=== PATIENT | female | born 1935 | race Caucasian/White ===

== ENCOUNTER 2017-10-11 10:56 | Inpatient (IN) | payer OTHER ==
[2017-10-05 11:51] VITALS: BMI 38.5
--- NOTE | 2017-10-05 12:25 | HP ---
HISTORY OF PRESENT ILLNESS This is an 82 year old female with PMHx of NIDDM, hypothyroidism, who is scheduled for C4/C5 corpectomy, C3-C6 anterior cervical discectomy. The patient reports about two months ago she started developing b/l hand pins and needles and b/l arm numbness. She reports it has progressively worsened over the past two months. The patient denies any chest pain, palpitations, nausea, vomiting, diarrhea, abdominal pain, headache, dizziness, syncope. The patient does reports having lower extremity swelling that she has had "forever", but has never told her primary about. Instructed the patient to follow-up with her pcp for an evaluation and medical clearance prior to surgery PCP: Dr. Elan Fleming ([phone]) Recent travel: denies Family History: denies Social History: denies Smoking: denies Alcohol: denies Drugs: denies REVIEW OF SYSTEMS CONSTITUTIONAL: Absent: fever, chills, diaphoresis, generalized weakness, malaise, loss of appetite, weight change HEENT: Absent: rhinorrhea, nasal congestion, throat pain, throat swelling, difficulty swallowing, mouth swelling, ear pain, eye pain, visual changes CARDIOVASCULAR: Absent: chest pain, syncope, palpitations, irregular heart rate, lightheadedness , peripheral edema RESPIRATORY: Absent: cough, shortness of breath, dyspnea with exertion, orthopnea, wheezing, stridor, hemoptysis GASTROINTESTINAL: Absent: abdominal pain, abdominal distension, nausea, vomiting, diarrhea, constipation, melena, hematochezia GENITOURINARY: Absent: dysuria, frequency, urgency, hesitancy, hematuria, flank pain, genital pain MUSCULOSKELETAL: Absent: myalgia, arthralgia, joint swelling, back pain SKIN: Absent: rash, itching, pallor HEMATOLOGIC/IMMUNOLOGIC: Absent: easy bleeding, easy bruising, lymphadenopathy, frequent infections ENDOCRINE: Absent: unexplained weight gain, unexplained weight loss, heat intolerance, cold intolerance NEUROLOGIC: B/l hand parasthesias and arm numbness Absent: headache, dizziness, unsteady gait, seizure, mental status changes, bladder or bowel incontinence PSYCHIATRIC: Absent: anxiety, depression, suicidal or homicidal ideation, hallucinations. PHYSICAL EXAMINATION: GENERAL: Awake, alert, and fully oriented, in no acute distress. HEAD: Normal with no signs of trauma. EYES: Pupils equal, round and reactive to light, extraocular movements intact, sclera anicteric, conjunctiva clear. No lid lag. EARS, NOSE, THROAT: Ears normal, nares patent, oropharynx clear without exudates. Moist mucous membranes. NECK: Normal range of motion, supple without lymphadenopathy, JVD, or masses. LUNGS: Breath sounds equal, clear to auscultation bilaterally. No wheezes, and no crackles. No accessory muscle use. HEART: Regular rate and rhythm, normal S1 and S2 without murmur, rub or gallop. ABDOMEN: Soft, nontender, not distended, normoactive bowel sounds, no guarding, no rebound, no masses. No hepatomegaly or splenomegaly. MUSCULOSKELETAL: Normal range of motion at all joints. No bony deformities or tenderness. No CVA tenderness. UPPER EXTREMITIES: 2+ pulses, warm, well-perfused. No cyanosis. No clubbing. No peripheral edema. LOWER EXTREMITIES: B/l lower extremity 2+ edema. 2+ pulses, warm, well- perfused. No calf tenderness NEUROLOGICAL: Cranial nerves II-XII intact. Normal speech. Normal gait. PSYCHIATRIC: Cooperative. Good eye contact. Appropriate mood and affect. SKIN: Warm, dry, normal turgor, no rashes or lesions noted, normal capillary refill. Assessment: This is an 82 year old female with PMHx of NIDDM, hypothyroidism, who is scheduled for C4/C5 corpectomy, C3-C6 anterior cervical discectomy. Plan: 1) C4/C5 corpectomy, C3-C6 anterior cervical discectomy - Plan scheduled surgery on 10/11/17 - Medical clearance pending from patient's pcp 2) NIDDM - Continue Glipizide/Metformin 3) Hypothyroidism - Continue Synthroid 4) B/l lower extremity swelling - Patient denies ever being evaluated for edema - Instructed the patient to follow-up with pcp prior to surgery for lower extremity edema evaluation
[2017-10-18 10:59] LABS: INR 0.98 (0.82-1.09); PROTHROMBIN TIME (PATIENT) 11.1 SEC (9.7-13.0)
[2017-10-18] MEDS ORDERED: PROMETHAZINE HCL 25 MG/1 ML VIAL IVPB PRN (14:13)
[2017-10-18] MEDS ORDERED: ONDANSETRON 4 MG/2 ML VIAL IVPUSH PRN ×2 (14:13→18:47)
[2017-10-18] MEDS ORDERED: DEXAMETHASONE SOD PHOSPHATE 4 MG/1 ML VIAL IVPUSH ONE (14:13)
[2017-10-18] MEDS ORDERED: HYDROmorphone *PCA* 10MG/50ML DISP.SYRIN PCA SCH (14:15)
[2017-10-18] MEDS ORDERED: LACTATED RINGERS SOLUTION 1,000 ML IV SCH ×2 (14:15→19:00)
[2017-10-18] MEDS ORDERED: HEPARIN NA (PORCINE) 5,000 UNITS/ML 1ML VIAL ONE (14:53)
[2017-10-18] MEDS ORDERED: GELATIN, ABSORBABLE 100 EACH SPONGE TP ONE (15:11)
[2017-10-18] MEDS ORDERED: THROMBIN (BOVINE) 5,000 UNIT VIAL TP ONE ×3 (15:13→17:48)
[2017-10-18] MEDS ORDERED: ceFAZolin SODIUM 1 GM VIAL IVPB ONE ×3 (15:15)
[2017-10-18] MEDS ORDERED: VANCOMYCIN 1,000 MG VIAL (RESTRICTED TO ID ONLY) IVPB ONE (15:30)
[2017-10-18] MEDS ORDERED: TRANEXAMIC ACID 1000 MG/10 ML VIAL ONE ×2 (16:07→17:20)
[2017-10-18] MEDS ORDERED: PROPOFOL 20 ML ONE ×6 (16:43→17:29)
[2017-10-18] MEDS ORDERED: DEXAMETHASONE SOD PHOSPHATE 4 MG/1 ML VIAL ONE (17:47)
--- NOTE | 2017-10-18 18:38 | OP ---
Operative Note - Note: Operative Date: 10/18/17 Pre-Operative Diagnosis: 1. Cervical spinal stenosis. 2. Cervical myeloradiculopathy. 3. Progressive neurological decline Operation: 1. C3-C4, C4-C5, C5-C6 discectomies. 2. C4, C5 corpectomies. 3. C3 , C6 partial corpectomies. 4. C3-C7 anterior cervical decompression and instrumented fusion. 5. Bone allograft Post-Operative Diagnosis: Same as Pre-op Surgeon: Tyshawn Amaral Online Merchandiser: Felipe Amaral Anesthesia: General Estimated Blood Loss (mls): 1,400 Blood Volume Replaced (mls): 560 (Cell Saver) Fluid Volume Replaced (mls): 2,300 (Crystalloid) Operative Report Dictated: Yes
--- NOTE | 2017-10-18 18:39 | PN ---
Progress Note (short form) - Note Progress Note: 82F s/p C3-C4, C4-C5, C5-C6 discectomies; C4, C5 corpectomies; C3, C6 partial corpectomies; C3-C7 anterior cervical decompression and instrumented fusion POD #0. -Admit to ICU x 24 hrs. for airway observation; OK to downgrade to floor 2017 if airway stable. -Maintain head of bed 60 degrees. -Pain medication: per anaesthesia team. -DVT PPx: -Mechanical only: IVIS's, SCD's. -Post-op Ancef x 2 doses. -f/u AM labs. -Incentive spirometry. -PT/OT/Rehab, OOB. -WBAT B/L UE & LE. -d/c Joseph catheter in AM; f/u TOV. -Keep dressing clean & dry. -No heavy lifting, bending or twisting. -Puree diet; advance as tolerated. -B/L UE & LE NV checks. -Care per ICU & primary medical hospitalist teams. -Discharge planning: f/u [facility] [place] office 10/28/2017; call for appointment; . Tyshawn Amaral MD (Orthopaedic Surgery).
[2017-10-18] MEDS ORDERED: traMADol HCL 50 MG TABLET PO PRN (18:47)
[2017-10-18] MEDS ORDERED: diazePAM CARPU-JECT 10 MG/2 ML DISP.SYRIN IVPUSH PRN (18:47)
[2017-10-18] MEDS ORDERED: oxyCODONE HCL 5 MG TABLET PO PRN ×2 (18:47)
[2017-10-18] MEDS ORDERED: ACETAMINOPHEN INJECTION 100 ML IVPB ONE (20:19)
[2017-10-18] MEDS: ACETAMINOPHEN 1000 MG/100 ML VIAL (NON FORMULARY) IVPB SCH (20:20)
[2017-10-18] MEDS: ceFAZolin 2 GRAM PREMIX BAG IVPB SCH (22:35)
[2017-10-19] MEDS: ACETAMINOPHEN 1000 MG/100 ML VIAL (NON FORMULARY) IVPB SCH (03:00)
[2017-10-19] MEDS ORDERED: DEXAMETHASONE SOD PHOSPHATE 10 MG/1 ML VIAL IVPUSH ONE (06:00)
[2017-10-19] MEDS: ceFAZolin 2 GRAM PREMIX BAG IVPB SCH (06:08)
[2017-10-19 06:17] LABS: HEMATOCRIT 33.3 % (32.4-45.2); HEMOGLOBIN 11.8 GM/dL (10.7-15.3); MCH 31.2 pg (25.7-33.7); MCHC 35.4 g/dl (32.0-36.0); MEAN CELL VOLUME 88.1 fl (80-96); MEAN PLT VOLUME 7.9 fl (7.5-11.1); PLATELET COUNT 163 K/MM3 (134-434); RBC 3.78 M/mm3 (3.60-5.2); RDW 13.3 % (11.6-15.6); WHITE BLOOD COUNT 9.2 K/mm3 (4.0-10.0)
[2017-10-19 06:40] LABS: ANION GAP 9 (8-16); BLOOD UREA NITROGEN 13 mg/dL (7-18); CALCIUM 7.6 mg/dL (8.5-10.1); CHLORIDE 110 mmol/L (98-107); CO2 21 mmol/L (21-32); GLUCOSE,RANDOM 221 mg/dL (74-106); POTASSIUM 4.2 mmol/L (3.5-5.1); SODIUM 140 mmol/L (136-145)
[2017-10-19 06:43] LABS: CREATININE 0.7 mg/dL (0.55-1.02)
[2017-10-19] MEDS ORDERED: LEVOTHYROXINE NA 100 MCG TABLET (FP) PO SCH (07:00)
--- NOTE | 2017-10-19 09:42 | PN ---
Progress Note, Physician Chief Complaint: Pt. sitting comfortably in chair. Pain controlled, no GA complaints. - Current Medication List Current Medications: Active Medications Acetaminophen (Ofirmev Injection -) 1,000 mg IVPB Q8H [facility] Stop: 10/19/17 11:01 Last Admin: 10/19/17 03:00 Dose: Not Given Diazepam (Valium Injection -) 5 mg IVPUSH Q6H PRN PRN Reason: MUSCLE SPASMS Lactated Ringer's (Lactated Ringers Solution) 1,000 mls @ 100 mls/hr IV ASDIR [facility] Last Admin: 10/18/17 21:30 Dose: 0 mls Insulin Aspart (Novolog Vial Sliding Scale -) 1 vial SQ Q6HPO [facility]; Protocol Levothyroxine Sodium (Synthroid -) 100 mcg PO 0700 [facility] Last Admin: 10/19/17 06:37 Dose: 100 mcg Ondansetron HCl (Zofran Injection) 4 mg IVPUSH Q6H PRN PRN Reason: NAUSEA AND/OR VOMITING Oxycodone HCl (Roxicodone -) 5 mg PO Q4H PRN PRN Reason: PAIN LEVEL 4-6 Oxycodone HCl (Roxicodone -) 10 mg PO Q4H PRN PRN Reason: PAIN LEVEL 7 - 10 Promethazine HCl (Phenergan Injection -) 12.5 mg IVPB Q6H PRN PRN Reason: NAUSEA AND/OR VOMITING Tramadol HCl (Ultram -) 50 mg PO Q6H PRN PRN Reason: PAIN LEVEL 1-3 - Objective Vital Signs: Vital Signs Temperature 97.6 F 10/19/17 06:00 Pulse Rate 78 10/19/17 07:44 Respiratory Rate 18 10/19/17 07:44 Blood Pressure 119/80 10/19/17 07:44 O2 Sat by Pulse Oximetry (%) 97 10/19/17 07:45 Constitutional: Yes: Well Nourished, No Distress, Calm Musculoskeletal: Yes: WNL Neurological: Yes: WNL, Alert, Oriented Labs: CBC, BMP 10/19/17 06:00 10/19/17 06:00 INR, PTT INR 0.98 (0.82-1.09) 10/18/17 09:50 Assessment/Plan POD#1 s/p C4-5 corpectomy, C3-6 ACDF under GA. Doing well. D/C from anesthesia care.
[2017-10-19] MEDS: INSULIN SLIDING SCALE (NOVOLOG) 1 VIAL SQ SCH ×3 (11:38→17:06)
[2017-10-19] MEDS ORDERED: PATIENT'S OWN MEDICATION (NON-FORMULARY) (Glipizide/Metformin Hcl [Glipizide-Metformin 5-5 PO SCH (11:45)
--- NOTE | 2017-10-19 11:56 | PN ---
Teaching Attending Note Name of Resident: Ciro Gillespie ATTENDING PHYSICIAN STATEMENT I saw and evaluated the patient. I reviewed the resident's note and discussed the case with the resident. I agree with the resident's findings and plan as documented. SUBJECTIVE: Pt seen and examined in the ICU. Briefly, 82yo female with h/o DM, hypothyroidism, cervical spinal stenosis who underwent elective C3-C4, C4-C5, C5 -C6 discectomies/C4, C5 corpectomies/C3, C6 partial corpectomies/C3-C7 anterior cervical decompression instrumented fusion. EBL 1400mL, 560mL cell saver returned, received 2300mL crystalloid. States pain controlled. No nausea or vomiting. No shortness of breath or chest pain. Tolerated PO this AM. Some right arm weakness. OBJECTIVE: Vital Signs Period Temp Pulse Resp BP Sys/Cordon Pulse Ox Last 24 Hr 97.2 F-98.6 F 66-90 14-20 119-150/56-80 96-100 Intake & Output 10/16/17 10/17/17 10/18/17 10/19/17 23:59 23:59 23:59 23:59 Intake Total 3260 1000 Output Total 2125 700 Balance 1135 300 Weight 95.028 kg Gen: NAD at rest Heart: RRR Lung: decreased breath sounds at the bases Abd: soft, nontender Ext: + edema CBC, BMP 10/19/17 06:00 10/19/17 06:00 Active Medications Diazepam (Valium Injection -) 5 mg IVPUSH Q6H PRN PRN Reason: MUSCLE SPASMS Glipizide (Glucotrol -) 10 mg PO BIDAC COUNTS INCLUDE 234 BEDS AT THE [facility] Insulin Aspart (Novolog Vial Sliding Scale -) 1 vial SQ Q6HPO COUNTS INCLUDE 234 BEDS AT THE [facility]; Protocol Last Admin: 10/19/17 11:38 Dose: 4 units Levothyroxine Sodium (Synthroid -) 100 mcg PO 0700 [facility] Last Admin: 10/19/17 06:37 Dose: 100 mcg Metformin HCl (Glucophage -) 1,000 mg PO BIDAC COUNTS INCLUDE 234 BEDS AT THE [facility] Non-Formulary Medication (Glipizide/Metformin Hcl [Glipizide-Metformin 5-500 Mg] ) 2 each PO BID [facility] Ondansetron HCl (Zofran Injection) 4 mg IVPUSH Q6H PRN PRN Reason: NAUSEA AND/OR VOMITING Oxycodone HCl (Roxicodone -) 5 mg PO Q4H PRN PRN Reason: PAIN LEVEL 4-6 Oxycodone HCl (Roxicodone -) 10 mg PO Q4H PRN PRN Reason: PAIN LEVEL 7 - 10 Promethazine HCl (Phenergan Injection -) 12.5 mg IVPB Q6H PRN PRN Reason: NAUSEA AND/OR VOMITING Tramadol HCl (Ultram -) 50 mg PO Q6H PRN PRN Reason: PAIN LEVEL 1-3 ASSESSMENT AND PLAN: Cervical Spinal Stenosis s/p C3-C4, C4-C5, C5-C6 discectomies/C4, C5 corpectomies/C3, C6 partial corpectomies/C3-C7 anterior cervical decompression instrumented fusion Hypothyroidism DM - pain control - incentive spirometry - PO as tolerated - rehab/PT - activity/DVT prophylaxis/disposition per surgery
[2017-10-19] MEDS: metFORMIN HCL 500 MG TABLET (FP) PO SCH ×2 (12:05→16:41)
[2017-10-19 12:11] VITALS: TEMP 98.3
--- NOTE | 2017-10-19 12:49 | CONSULT ---
Consultation: REQUESTING PROVIDER: Dr. Amaral CONSULT REQUEST: We have been asked to medically evaluate this patient for ( specify). HISTORY OF PRESENT ILLNESS: This is an 82 year old female with PMHx of NIDDM, hypothyroidism, POD #1 for elective C3-C4, C4-C5, C5-C6 discectomies/C4, C5 corpectomies/C3, C6 partial corpectomies/C3-C7 anterior cervical decompression instrumented fusion. Complains of RUE arm weakness with discoloration of the 3rd digit. Patient with no other complaints. Says she has minimal pain around surgical site. Tolerated PO this AM. Had a BM this morning, and passing flatus. Currently sat 100% on room air. The patient denies any chest pain, palpitations, nausea, vomiting, diarrhea, abdominal pain, headache, dizziness, syncope. REVIEW OF SYSTEMS: CONSTITUTIONAL: Absent: fever, chills, diaphoresis, generalized weakness, malaise, loss of appetite, weight change HEENT: Absent: rhinorrhea, nasal congestion, throat pain, throat swelling, difficulty swallowing, mouth swelling, ear pain, eye pain, visual changes CARDIOVASCULAR: Absent: chest pain, syncope, palpitations, irregular heart rate, lightheadedness , peripheral edema RESPIRATORY: Absent: cough, shortness of breath, dyspnea with exertion, orthopnea, wheezing, stridor, hemoptysis GASTROINTESTINAL: Absent: abdominal pain, abdominal distension, nausea, vomiting, diarrhea, constipation, melena, hematochezia GENITOURINARY: Absent: dysuria, frequency, urgency, hesitancy, hematuria, flank pain, genital pain MUSCULOSKELETAL: Absent: myalgia, arthralgia, joint swelling, back pain, neck pain SKIN: Absent: rash, itching, pallor HEMATOLOGIC/IMMUNOLOGIC: Absent: easy bleeding, easy bruising, lymphadenopathy, frequent infections ENDOCRINE: Absent: unexplained weight gain, unexplained weight loss, heat intolerance, cold intolerance NEUROLOGIC: Absent: headache, focal weakness or paresthesias, dizziness, unsteady gait, seizure, mental status changes, bladder or bowel incontinence PHYSICAL EXAMINATION Vital Signs - 24 hr 10/18/17 10/18/17 10/18/17 18:46 19:00 19:15 Temperature 97.8 F Pulse Rate 90 88 87 Respiratory 18 20 15 Rate Blood Pressure 142/66 142/66 147/64 O2 Sat by Pulse 96 100 100 Oximetry (%) 0610/18/17 10/18/17 19:30 19:45 20:00 Temperature Pulse Rate 84 80 79 Respiratory 19 17 15 Rate Blood Pressure 150/66 148/67 140/69 O2 Sat by Pulse 100 100 100 Oximetry (%) 10/18/17 10/18/17 10/18/17 20:15 20:30 20:45 Temperature Pulse Rate 79 76 80 Respiratory 17 18 15 Rate Blood Pressure 150/66 141/59 141/62 O2 Sat by Pulse 100 100 100 Oximetry (%) 10/18/17 10/18/17 10/18/17 21:00 21:15 21:30 Temperature 97.6 F Pulse Rate 78 73 76 Respiratory 16 16 16 Rate Blood Pressure 140/60 139/62 140/62 O2 Sat by Pulse 100 99 Oximetry (%) 10/18/17 10/18/17 10/19/17 21:40 22:00 00:00 Temperature 97.8 F Pulse Rate 80 74 71 Respiratory 14 18 17 Rate Blood Pressure 145/69 145/72 139/62 O2 Sat by Pulse 99 Oximetry (%) 10/19/17 10/19/17 10/19/17 02:00 04:00 06:00 Temperature 97.2 F L 97.6 F Pulse Rate 72 78 76 Respiratory 15 17 16 Rate Blood Pressure 136/57 141/73 126/56 O2 Sat by Pulse Oximetry (%) 10/19/17 10/19/17 10/19/17 07:44 07:45 10:00 Temperature 98.6 F Pulse Rate 78 66 Respiratory 18 20 Rate Blood Pressure 119/80 128/63 O2 Sat by Pulse 97 Oximetry (%) 10/19/17 12:10 Temperature 98.3 F Pulse Rate 66 Respiratory 16 Rate Blood Pressure 120/58 O2 Sat by Pulse Oximetry (%) GENERAL: Awake, alert, and fully oriented, in no acute distress. EYES: Pupils equal, round and reactive to light, extraocular movements intact, EARS, NOSE, THROAT: oropharynx clear without exudates. Moist mucous membranes. NECK: Normal range of motion, supple. Neck with surgical dressing. LUNGS: Breath sounds equal, clear to auscultation bilaterally. HEART: Regular rate and rhythm, normal S1 and S2 without murmur, rub or gallop. ABDOMEN: Soft, nontender, not distended, normoactive bowel sounds, no guarding, no rebound, no masses. MUSCULOSKELETAL: Normal range of motion at all joints. UPPER EXTREMITIES: R 3rd digit with purple color. 2+ pulses throughout. RUE weakness LOWER EXTREMITIES: 2+ pulses, warm, well-perfused. No calf tenderness. No peripheral edema. NEUROLOGICAL: Cranial nerves II-XII intact. Normal speech. Laboratory Results - last 24 hr 10/19/17 10/19/17 10/19/17 05:55 06:00 06:00 WBC 9.2 D RBC 3.78 Hgb 11.8 Hct 33.3 MCV 88.1 MCH 31.2 MCHC 35.4 RDW 13.3 Plt Count 163 D MPV 7.9 Sodium 140 Potassium 4.2 Chloride 110 H Carbon Dioxide 21 Anion Gap 9 BUN 13 Creatinine 0.7 POC Glucometer [phone] Random Glucose 221 H Calcium 7.6 L 10/19/17 10/19/17 11:27 11:33 WBC RBC Hgb Hct MCV MCH MCHC RDW Plt Count MPV Sodium Potassium Chloride Carbon Dioxide Anion Gap BUN Creatinine POC Glucometer [phone] Random Glucose Calcium Active Medications Generic Name Dose Route Start Last Admin Trade Name Freq PRN Reason Stop Dose Admin Diazepam 5 mg 10/18/17 18:47 Valium Injection - IVPUSH Q6H PRN MUSCLE SPASMS Glipizide 10 mg 10/19/17 12:15 Glucotrol - PO BIDAC [facility] Insulin Aspart 1 vial 10/19/17 07:45 10/19/17 11:38 Novolog Vial Sliding Scale - SQ 4 units Q6HPO [facility] Administration Protocol Levothyroxine Sodium 100 mcg 10/19/17 07:00 10/19/17 06:37 Synthroid - PO 100 mcg 0700 [facility] Administration Metformin HCl 1,000 mg 10/19/17 12:15 10/19/17 12:05 Glucophage - PO 1,000 mg BIDAC [facility] Administration Ondansetron HCl 4 mg 10/18/17 18:47 Zofran Injection IVPUSH Q6H PRN NAUSEA AND/OR VOMITING Oxycodone HCl 5 mg 10/18/17 18:47 Roxicodone - PO Q4H PRN PAIN LEVEL 4-6 Oxycodone HCl 10 mg 10/18/17 18:47 Roxicodone - PO Q4H PRN PAIN LEVEL 7 - 10 Promethazine HCl 12.5 mg 10/18/17 14:13 Phenergan Injection - IVPB Q6H PRN NAUSEA AND/OR VOMITING Tramadol HCl 50 mg 10/18/17 18:47 Ultram - PO Q6H PRN PAIN LEVEL 1-3 ASSESSMENT/PLAN: #s/p C3-C4, C4-C5, C5-C6 discectomies/C4, C5 corpectomies/C3, C6 partial corpectomies/C3-C7 anterior cervical decompression instrumented fusion -Maintain head of bed 60 degrees. -Pain control: Oxycodone -Post-op Ancef x 2 doses. -Incentive spirometry -PT -Joseph D/c -Keep dressing clean & dry. -Puree diet; advance as tolerated. -B/L UE & LE NV checks. -Discussed RUE weakness and finger discoloration with Dr. Amaral. Recommends outpatient follow up #DM -glipizide/metformin -BGM #Hypothyroidism -levothyroxine 100 #DVT PPx -IVIS's, SCD's. Discharge planning: f/u [facility] [place] office 10/28/2017; call for appointment; [phone] Visit type - Emergency Visit Emergency Visit: Yes ED Registration Date: 10/18/17 Care time: The patient presented to the Emergency Department on the above date and was hospitalized for further evaluation of their emergent condition. - New Patient This patient is new to me today: Yes Date on this admission: 10/19/17 - Critical Care Critical Care patient: Yes Total Critical Care Time (in minutes): 40 Critical Care Statement: The care of this patient involved high complexity decision making to prevent further life threatening deterioration of the patient 's condition and/or to evaluate & treat vital organ system(s) failure or risk of failure.
[2017-10-19] MEDS: glipiZIDE 10 MG TABLET (FP) PO SCH ×2 (15:07→16:41)
[2017-10-19 16:49] VITALS: BP 123/68; PULSE 80
--- NOTE | 2017-10-19 18:08 | DS ---
Physical Exam: SUBJECTIVE: Patient seen and examined in ICU.Feels well eager to go home. Has RUE swelling OBJECTIVE: Vital Signs Period Temp Pulse Resp BP Sys/Cordon Pulse Ox Last 24 Hr 97.2 F-98.6 F 66-90 14-20 119-150/56-80 96-100 PE Neuro: alert, awake, cn 2-12intact HEENT: anterior neck dressing cdi Pulm: CTAB CV: s1 s2 rrr Abd: s nt nd + bs Ext: RUE swelling, tenderness + radial pulse +2 Laboratory Results - last 24 hr 10/19/17 10/19/17 10/19/17 05:55 06:00 06:00 WBC 9.2 D RBC 3.78 Hgb 11.8 Hct 33.3 MCV 88.1 MCH 31.2 MCHC 35.4 RDW 13.3 Plt Count 163 D MPV 7.9 Sodium 140 Potassium 4.2 Chloride 110 H Carbon Dioxide 21 Anion Gap 9 BUN 13 Creatinine 0.7 POC Glucometer [phone] Random Glucose 221 H Calcium 7.6 L HOSPITAL COURSE: Date of Admission:10/18/17 Date of Discharge: 10/19/17 Minutes to complete discharge: 38 Discharge Summary Reason For Visit: CERVICAL DISC DISORDER W MYELOPATHY, CERVICOTHORAC Current Active Problems Stenosis of cervical spine with myelopathy (Acute) Hospital Course: Hospital Course: This is a 82 year old female with PMHx of NIDDM, hypothyroidism s/p C3-C4, C4-C5 , C5-C6 discectomies/C4, C5 corpectomies/C3, C6 partial corpectomies/C3-C7 anterior cervical decompression instrumented fusion 10/18/2017. Plan: 1. s/p C3-C4, C4-C5, C5-C6 discectomies/C4, C5 corpectomies/C3, C6 partial corpectomies/C3-C7 anterior cervical decompression instrumented fusion - f/u [facility] [place] office 10/28/2017; call for appointment; [phone] - Home with soft c collar 2. DM -glipizide/metformin -BGM 3. Hypothyroidism -levothyroxine 100 4. RUE swelling - Doppler neg for dvt - Home with sling 5. PVCs - EKG shows NSR - Cardiology referral enclosed for post follow up Dispo: - Home with above plan and follow up - Pt declines pain medication Condition: Stable - Instructions Diet, Activity, Other Instructions: Please return to the ED for any new, persistent, or worsening symptoms. Follow up with your pcp in 1 week. Follow with [facility] [place] office 10/28/2017; call for appointment; . Resume home meds as directed Continue wearing c collar Wear sling to Right arm, monitor for increased swelling, pain, sensation, discoloration Referrals: Tyshawn Amaral MD [Staff Physician] - Hu Sampson MD [Staff Physician] - Disposition: HOME - Home Medications Comprehensive Discharge Medication List: Ambulatory Orders Aspirin Coated [Ecotrin -] 81 mg PO DAILY 10/05/17 Glipizide/Metformin HCl [Glipizide-Metformin 5-500 mg] 2 each PO BID 10/05/17 Levothyroxine [Synthroid -] 100 mcg PO DAILY 10/05/17 This patient is new to me today: Yes Date on this admission: 10/20/17 Emergency Visit: Yes ED Registration Date: 10/18/17 Care time: The patient presented to the Emergency Department on the above date and was hospitalized for further evaluation of their emergent condition. Critical Care patient: No - Discharge Referral Referred to [facility] Med P.C.: No
--- NOTE | 2017-10-20 09:43 | EKG ---
Test Reason : Blood Pressure : / mmHG Vent. Rate : 074 BPM Atrial Rate : 074 BPM P-R Int : 136 ms QRS Dur : 094 ms QT Int : 402 ms P-R-T Axes : 048 008 034 degrees QTc Int : 446 ms NORMAL SINUS RHYTHM NORMAL ECG WHEN COMPARED WITH ECG OF 05-OCT-2017 11:32, NO SIGNIFICANT CHANGE WAS FOUND Confirmed by TAYLOR TORRES MD ([id number]) on 10/20/2017 9:42:59 AM Referred By: Confirmed By:TAYLOR TORRES MD
--- NOTE | 2017-10-26 15:42 | OP ---
DATE OF OPERATION: 10/18/2017 SURGEON: Tyshawn Amaral MD TELEPHONIC RN: Felipe Amaral MD PREOPERATIVE DIAGNOSIS: 1. Cervical spinal stenosis. 2. Cervical myeloradiculopathy. 3. Progressive neurological decline. POSTOPERATIVE DIAGNOSIS: 1. Cervical spinal stenosis. 2. Cervical myeloradiculopathy. 3. Progressive neurological decline. SURGICAL PROCEDURE: 1. C3-C4, C4-C5, C5-C6 discectomies. 2. C4, C5 corpectomies. 3. C3, C6 partial corpectomies. 4. C3-C7 anterior cervical decompression and instrumented fusion. 5. Bone autograft. ANESTHESIA: General. endotracheal tube anesthesia. POSITION: Supine. INCISION: Right oblique anterior. ESTIMATED BLOOD LOSS: 1.4 L. INTRAVENOUS FLUID: 1. Crystalloid, 2300 mL. 2. Cell-saver blood, 560 mL. SPECIMENS: None. DRAINS: None. COMPLICATIONS: None. URINE OUTPUT: See anesthesia record. BACTERIOLOGY: None. TRANSFUSIONS: Cell-saver, 560 mL, as listed above. CLOSURE: 2-0 Vicryl and 3-0 Biosyn absorbable suture. INDICATIONS: The patient s an 82-year-old female who was indicated for anterior cervical decompression and fusion to prevent the progression of already worsening neurological decline. The patient was identified in the holding area by her arm band. A long discussion was held with the patient regarding the risks, benefits, and alternatives of the above named procedure. The risks include, but are not limited to: Pain, bleeding, infection, damage to surrounding structures (including nerves, blood vessels, skin, ligaments, tendons, and bone), wound complications, pseudarthrosis, failure of fusion, failure of hardware/implants/reduction, need for further surgery, blood clots, myocardial infarction, pulmonary embolism, cerebrovascular event, anesthesia complications, neurological injury, loss of function, and . Benefits as mentioned above. Alternatives include no surgery. All questions were answered. The patient understood and agreed to the procedure. Informed consent was obtained, witnessed, and verified. The patient was taken to the operating room after being seen by the anesthesia and nursing staff. DESCRIPTION OF PROCEDURE: The patient was brought into the operating room, placed on the OR table and secured with a safety strap. Consent at the operative site was again verified with the patient and nursing and anesthesia staff. Anesthesia was then administered without complications including 2 g of IV Ancef, 1 g of IV vancomycin, and 1 g of TXA. A time-out was then done led by , the attending surgeon. The patient was positioned in the supine position with arms tucked and placed under gentle traction using tape over her shoulders. All bony prominences were very well padded. A bump was placed beneath the scapulae so as to facilitate extension of the patients neck. The cricothyroid interval was palpated, and a deep neck crease in the lines of Severo at this level was targeted for incision. The operative site was then prepped and draped in the standard sterile fashion. Time-out was again done, and the case began. An oblique anterior incision was made on the right side of the patients neck in the lines of Severo in standard fashion. Dissection was carried through the investing layer of fascia and finger palpation was used to create a plain lateral to the strap muscles between the carotid sheath and the viscera. Next, the esophagus and trachea were visualized as was the carotid sheath. Hand-held retractors were used to retract these structures safely out of the way, allowing direct access to the anterior cervical spine. The prevertebral fascia overlying the anterior cervical spine was then split using peanut swabs. An 18-gauge spinal needle was bent and used to localize the C3-C4 disc space under fluoroscopy and was inserted into the C3-C4 disc with this position confirmed on fluoroscopy. Next, the medial borders of the longus coli musculature were gently released over the anterolateral borders of the vertebral bodies and disc spaces. Self-retaining retractor system was used with the teeth of the blades retracting the belly of the longus coli muscles, and with the retractors themselves safely retracting the carotid sheath and viscera laterally and medially respectively. Hawley pins were then placed into the vertebral bodies of C3 and C6, and a distractor system was applied. No distraction was performed because of the softness of the bone. The microscope was then introduced. Using unipolar Bovie, the C3-C4, C4-C5, and C5-C6 discs were incised using electrocautery, the annulus of those discs was incised using electrocautery. Despite attempted curettage, the discs were quite calcified and overhanging osteophyte complex made discectomy difficult. A Matchstick rohan-tipped kelsie was then used to cut a trough onto the left- and right-hand side of the vertebral bodies just medial to the plain of the vertebral artery. The disc spaces were then also burred out at each of the above levels. The remaining bone was delivered with a [place] rongeur. All this bone was saved for grafting purposes as an autologous graft. The complete decompression was finalized with the 40-mm rough rohan kelsie, which enabled complete freeing of the bone posteriorly right onto the posterior longitudinal ligaments. All of the bone from the posterior aspect of vertebral bodies was removed, and for the most part, the posterior longitudinal ligament was excised, as well. A small [place] type elevator was utilized to ensure that all PLL complex was free from adhesion prior to excision. There were 2 foci where this was not possible due to adherence of the PLL complex onto the spinal cord. This was superolaterally on the right side and inferolaterally on the left side. At this point, the spinal cord appeared to be bulging toward us following the decompression. It demonstrated an hourglass configuration as there were obvious areas of now-relieved stenosis. Next, a power mesh cage was then cut to measure exactly the space created. The end-plates were burred, so there was well-visualized rectangle, and the end-plates were gently curetted down to the level of healthy bleeding bone. The cage was gently tapped into position. The graft in the cage completed the anterior arthrodesis. The size plate was a 43-mm plate with screws measuring 12 mm to provide solid fixation. This was demonstrated with a plate-portillo once all instrumentation was satisfactorily seated. The screws were then locked using the plate-screw locking mechanism. Fluoroscopic images in the AP and lateral plains showed implants to be in good position and with good overall alignment of the cervical spine. Copious irrigation was performed, hemostasis was assured, and the wound was closed primarily using 2-0 Vicryl and 3-0 Biosyn sutures. A sterile compressive dressing was applied. Sponge and needle counts were correct at the end of the case, and I, the attending surgeon, was present and scrubbed throughout the case. The patient was then extubated by the anesthesia staff without incident or complications and was then transferred to the recovery room in stable condition having tolerated the procedure well. OVERALL COMMENTS: Difficult operation, went well, unusual blood loss. Diminished motor-evoked potentials at baseline with some transient decline in the right upper extremity following decompression of the cervical spine noted by the neuromonitoring team. MD SASHA Sheikh/[id number]
== END 2017-10-19 18:14 | disposition home or self-care (01) | DRG 472 ==
LOC: EDSTATUS 11:01 → JSAMEDAYSX 10-18 09:30 → JICU 10-18 22:00
PROVIDERS: ADMIT Orthopaedic Surgery Adult Reconstructive Orthopaedic Surgery; ATTEND Orthopaedic Surgery Adult Reconstructive Orthopaedic Surgery
PROC: 0RB30ZZ Excision of Cervical Vertebral Disc, Open Approach (ICD-10-PCS; 2017-10-18)
PROC: 00NW0ZZ Release Cervical Spinal Cord, Open Approach (ICD-10-PCS; 2017-10-18)
PROC: 0PU307Z Supplement Cervical Vertebra with Autologous Tissue Substitute, Open Approach (ICD-10-PCS; 2017-10-18)
PROC: 0RG20A0 Fusion of 2 or more Cervical Vertebral Joints with Interbody Fusion Device, Anterior Approach, Anterior Column, Open Approach (ICD-10-PCS; principal; 2017-10-18 11:45)
DX: M48.02 Spinal stenosis, cervical region (principal); M47.12 Other spondylosis with myelopathy, cervical region; M54.12 Radiculopathy, cervical region; E11.9 Type 2 diabetes mellitus without complications; E03.9 Hypothyroidism, unspecified; Z79.84 Long term (current) use of oral hypoglycemic drugs; I49.3 Ventricular premature depolarization; R20.0 Anesthesia of skin
CPT/HCPCS: 36415; 76000-TC-FY; 80048; 82962; 85027; 85610; 86850; 86891; 86900; 86901; 93005; 93010; 93971; 94760; 97116-GP; 97161-GP; J0131; J1100; J1644

== ENCOUNTER 2018-01-24 09:51 | Inpatient (IN) | payer OTHER, MEDICARE ==
[2018-01-24] MEDS ORDERED: PROPOFOL 20 ML ONE ×9 (11:27→15:12)
[2018-01-24] MEDS ORDERED: ROCURONIUM BROMIDE 50 MG/5 ML VIAL ONE (11:31)
[2018-01-24] MEDS ORDERED: LIDOCAINE HCL/PF 2% SDV 5ML VIAL ONE (11:31)
[2018-01-24] MEDS ORDERED: MIDAZOLAM HCL 2 MG/2 ML SINGLE DOSE VIAL ONE ×2 (11:34→14:03)
[2018-01-24] MEDS ORDERED: ceFAZolin SODIUM 1 GM VIAL ONE ×2 (11:43→13:52)
[2018-01-24] MEDS ORDERED: SODIUM CHLORIDE 0.9% P/F 10 ML VIAL IJ ONE ×2 (11:43→13:52)
[2018-01-24] MEDS ORDERED: ONDANSETRON 4 MG/2 ML VIAL IVPUSH PRN ×2 (12:36→16:09)
[2018-01-24] MEDS ORDERED: HYDROmorphone *PCA* 10MG/50ML DISP.SYRIN PCA SCH (12:45)
[2018-01-24] MEDS ORDERED: LACTATED RINGERS SOLUTION 1,000 ML IV SCH (12:45)
[2018-01-24] MEDS ORDERED: HEPARIN NA (PORCINE) 5,000 UNITS/ML 1ML VIAL ONE (13:21)
[2018-01-24] MEDS ORDERED: THROMBIN (BOVINE) 5,000 UNIT VIAL TP ONE (13:34)
[2018-01-24] MEDS ORDERED: ONDANSETRON 4 MG/2 ML VIAL ONE (13:53)
[2018-01-24] MEDS ORDERED: DEXAMETHASONE SOD PHOSPHATE 4 MG/1 ML VIAL ONE (13:53)
[2018-01-24] MEDS ORDERED: ATROPINE SO4 0.4 MG/1 ML VIAL ONE (14:06)
[2018-01-24] MEDS ORDERED: KETOROLAC TROMETHAMINE 30 MG/1 ML VIAL ONE ×2 (14:06→17:14)
[2018-01-24] MEDS ORDERED: ePHEDrine SULFATE 50 MG/1 ML AMPULE ONE (14:26)
[2018-01-24] MEDS ORDERED: TRANEXAMIC ACID 1000 MG/10 ML VIAL ONE (14:30)
[2018-01-24] MEDS ORDERED: ceFAZolin SODIUM 1 GM VIAL IVPB ONE (14:40)
[2018-01-24] MEDS ORDERED: VANCOMYCIN 500 MG VIAL (RESTRICTED TO ID ONLY) IVPB ONE (14:45)
[2018-01-24] MEDS ORDERED: VANCOMYCIN 1,000 MG VIAL (RESTRICTED TO ID ONLY) ONE (15:10)
[2018-01-24] MEDS ORDERED: traMADol HCL 50 MG TABLET PO PRN (16:09)
[2018-01-24] MEDS ORDERED: oxyCODONE HCL 5 MG TABLET PO PRN (16:09)
--- NOTE | 2018-01-24 16:16 | PN ---
Progress Note (short form) - Note Progress Note: 82F s/p removal of hardware (plate and screws) C3-C6 POD #0. -Admit to ICU x 24 hrs. for airway observation; OK to downgrade to floor 2017 if airway stable. -Maintain head of bed 60 degrees. -Pain medication: per anaesthesia team. -DVT PPx: -Mechanical only: IVIS's, SCD's. -Post-op Ancef x 2 doses. -f/u AM labs. -Incentive spirometry. -PT/OT/Rehab, OOB. -WBAT B/L UE & LE. -d/c Joseph catheter in AM; f/u TOV. -Keep dressing clean & dry. -No heavy lifting, bending or twisting. -Puree diet; advance as tolerated. -B/L UE & LE NV checks. -Care per ICU & primary medical hospitalist teams. -Discharge planning: f/u [facility] [place] office Wednesday02/01/2018; call for appointment; . Tyshawn Amaral MD (Orthopaedic Surgery).
--- NOTE | 2018-01-24 16:20 | OP ---
Operative Note - Note: Operative Date: 01/24/18 Pre-Operative Diagnosis: Failed hardware cervical spine Operation: Removal of hardware (plate & screws C3-C6) cervical spine Findings: C3-C6 anterior cervical spine cage solidly fixed Post-Operative Diagnosis: Same as Pre-op Surgeon: Tyshawn Amaral Catheter Finisher And Inspector: Felipe Amaral Anesthesiologist/LEGAL PARAPROFESSIONAL: Duran Mariscal Anesthesia: General Specimens Removed: Anterior cervical spine hardware Estimated Blood Loss (mls): 25 Fluid Volume Replaced (mls): 1,600 (Crystalloid) Operative Report Dictated: Yes
--- NOTE | 2018-01-24 16:27 | PN ---
Progress Note (short form) - Note Progress Note: Pt. seen and examined in pre-op holding area. Risks, benefits and alternatives of surgery discussed with and understood by patient. Surgical consent obtained. H&P reviewed. Pt. wishes to proceed as discussed and planned.
[2018-01-24] MEDS ORDERED: ACETAMINOPHEN INJECTION 100 ML IVPB ONE (16:59)
[2018-01-24] MEDS: ACETAMINOPHEN 1000 MG/100 ML VIAL (NON FORMULARY) IVPB ONE ×2 (17:00→17:45)
--- NOTE | 2018-01-24 17:03 | OP ---
DATE OF OPERATION: 01/24/2018 SURGICAL ATTENDING: Tyshawn Amaral M.D., Jung Thomas M.D. PREOPERATIVE DIAGNOSIS: Cervical spine hardware malfunction. POSTOPERATIVE DIAGNOSIS: Cervical spine hardware malfunction. ANESTHESIA: General endotracheal anesthesia. PROCEDURE: Cervical spine exposure. DESCRIPTION OF PROCEDURE: Patient was taken into the operating room, placed in supine position, prepped and draped in the usual sterile fashion. A left upper neck incision was made and carried down through subcutaneous and platysma. The anterior jugular vein was clamped, cut, and tied superiorly and inferiorly. The anterior border of the sternocleidomastoid muscle was dissected. The omohyoid muscle was transected and the sternohyoid and sternothyroid muscles were retracted medially. Jugular vein and carotid artery were identified and retracted laterally. The facial vein was seen and retracted superiorly. A branch of the facial vein was clamped, cut, and tied. No cranial nerves appeared in the field and all were avoided. The esophagus was lifted off the cervical spine without injury or difficulty. The spine and the overlying plate were identified. At this point, with adequate exposure obtained, Dr. Amaral performed the hardware extraction. He will dictate that portion of the case. Hemostasis was achieved and assured. The sternocleidomastoid muscle was approximated to the sternohyoid muscle with 2 Vicryl sutures. The platysma was closed with Vicryl suture. The skin was closed with Monocryl. Sterile dressings were placed. The patient was then awakened, extubated, and taken to recovery in stable condition. Dr. hTomas and Dr. Amaral, the attending surgeons, were present throughout the entire procedure. JUNG THOMAS M.D. [id number]
[2018-01-24] MEDS: LACTATED RINGERS SOLUTION 1,000 ML IV SCH ×2 (17:15→17:45)
[2018-01-24] MEDS: KETOROLAC TROMETHAMINE 30 MG/1 ML VIAL IVPUSH ONE ×2 (17:15→17:45)
[2018-01-24] MEDS: ACETAMINOPHEN 325 MG TABLET (FP) PO SCH (18:00)
[2018-01-24] MEDS: ceFAZolin 2 GRAM PREMIX BAG IVPB SCH (21:12)
--- NOTE | 2018-01-24 22:59 | CONSULT ---
Consultation: REQUESTING PROVIDER: CONSULT REQUEST: We have been asked to medically evaluate this patient for critical care. HISTORY OF PRESENT ILLNESS: 82 y/o F w/PMH of DM, hypothyroidism, had C3-C6 discectomies on 10/18/17 and is now s/p removal of hardware from this surgery POD #0 due to loosening of screws from the hardware. Pt is currently without any complaints and laying in bed comfortably. Pt denies any CP, SOB, abd pain, N/V/F/C, neck pain. She also denies passing any flatus at this time. Pt is currently in ICU for airway observation s/p surgery. She initially had the surgery on 10/18/17 due to numbness and tingling in b/l hands particularly while driving. REVIEW OF SYSTEMS: CONSTITUTIONAL: Absent: fever, chills CARDIOVASCULAR: Absent: chest pain RESPIRATORY: Absent: shortness of breath GASTROINTESTINAL: Absent: abdominal pain, nausea, vomiting NEUROLOGIC: Absent: headache PHYSICAL EXAMINATION Vital Signs - 24 hr 01/24/18 01/24/18 01/24/18 11:12 16:15 16:30 Temperature 98.0 F 98.0 F Pulse Rate 73 78 80 Respiratory 18 18 13 Rate Blood Pressure 139/66 150/80 165/70 O2 Sat by Pulse 98 99 100 Oximetry (%) 01/24/18 01/24/18 01/24/18 16:45 17:00 17:15 Temperature 98.0 F Pulse Rate 76 80 80 Respiratory 18 18 16 Rate Blood Pressure 150/78 155/74 150/70 O2 Sat by Pulse 99 100 Oximetry (%) 01/24/18 01/24/18 01/24/18 17:45 18:00 19:58 Temperature 97.7 F 97.8 F Pulse Rate 85 77 Respiratory 21 18 Rate Blood Pressure 157/76 149/71 O2 Sat by Pulse 99 99 Oximetry (%) 01/24/18 01/24/18 20:17 22:15 Temperature 97.8 F Pulse Rate 80 79 Respiratory 18 18 Rate Blood Pressure 143/68 147/74 O2 Sat by Pulse Oximetry (%) GENERAL: Awake, alert, and fully oriented, in no acute distress. C-spine collar in place. EYES: extraocular movements intact, sclera anicteric, conjunctiva clear. EARS, NOSE, THROAT: Ears normal, nares patent NECK: C-spine collar in place. LUNGS: Breath sounds equal, clear to auscultation bilaterally. Auscultated anteriorly. HEART: Regular rate and rhythm, normal S1 and S2 ABDOMEN: Soft, nontender, hypoactive BS. LOWER EXTREMITIES: warm, well-perfused. NEUROLOGICAL: Cranial nerves II-XII grossly intact. Normal speech. Normal gait. 5/5 b/l UE quality control assessor strength. PSYCHIATRIC: Cooperative. Good eye contact. Appropriate mood and affect. SKIN: Warm, dry Laboratory Results - last 24 hr 01/24/18 01/24/18 10:00 11:09 POC Glucometer 120 Blood Type O POSITIVE Antibody Screen Negative Active Medications Generic Name Dose Route Start Last Admin Trade Name Freq PRN Reason Stop Dose Admin Acetaminophen 650 mg 01/24/18 18:00 01/24/18 18:00 Tylenol - PO Not Given Q6HPO PHIL Cefazolin Sodium/Dextrose 2 gm 01/24/18 21:00 01/24/18 21:12 Ancef 2 Gm Premixed Ivpb - IVPB 01/25/18 05:01 2 gm Q8H PHIL Administration Lactated Ringer's 1,000 mls @ 100 mls/hr 01/24/18 16:15 01/24/18 17:45 Lactated Ringers Solution IV 100 mls/hr ASDIR PHIL Administration Levothyroxine Sodium 100 mcg 01/25/18 07:00 Synthroid - PO 0700 PHIL Ondansetron HCl 4 mg 01/24/18 16:09 Zofran Injection IVPUSH Q6H PRN NAUSEA AND/OR VOMITING Oxycodone HCl 5 mg 01/24/18 16:09 Roxicodone - PO Q4H PRN PAIN LEVEL 6-10 Tramadol HCl 50 mg 01/24/18 16:09 Ultram - PO Q6H PRN PAIN LEVEL 4 - 6 ASSESSMENT/PLAN: 82 y/o F w/PMH of DM, hypothyroidism, had C3-C6 discectomies on 10/18/17 and is now s/p removal of hardware from this surgery POD #0 due to loosening of screws. -s/p removal of hardware from C3-C6 (POD#0) -Hypothyroidism -DM -Monitor in ICU overnight for airway observation. -Keep head of bed at 60 degrees. -Pain contorl with oxy and ultram PRN -PT -Incentive spirometry -Joseph can be d/c'd in AM -Puree diet to start, advance as tolerated -Neuro checks -c/w synthroid -BGMs, ISS -LR @ 100 ml/hr -If airway remains stable can likely be transferred to m/s floors tomorrow. Visit type - Emergency Visit Emergency Visit: Yes ED Registration Date: 01/24/18 Care time: The patient presented to the Emergency Department on the above date and was hospitalized for further evaluation of their emergent condition. - New Patient This patient is new to me today: Yes Date on this admission: 01/24/18 - Critical Care Critical Care patient: Yes Total Critical Care Time (in minutes): 35 Critical Care Statement: The care of this patient involved high complexity decision making to prevent further life threatening deterioration of the patient 's condition and/or to evaluate & treat vital organ system(s) failure or risk of failure.
[2018-01-25] MEDS: ACETAMINOPHEN 325 MG TABLET (FP) PO SCH ×3 (00:14→14:18)
--- NOTE | 2018-01-25 00:25 | OP ---
DATE OF OPERATION: DATE OF DICTATION: 01/24/2018 PREOPERATIVE DIAGNOSIS: Failed hardware, cervical spine. OPERATION: Removal of hardware (patent screw, C3-C6) cervical spine. FINDINGS: C3 to C6 anterior cervical spine cage solidly fixed. POSTOPERATIVE DIAGNOSIS: Failed hardware, cervical spine. SURGEON: Tyshawn Amaral M.D. BLOOD BANK TECHNICIAN: Felipe Amaral M.D., and Jung Null M.D. ANESTHESIOLOGIST: Duran Mariscal M.D. ANESTHESIA: General endotracheal anesthesia. SPECIMENS REMOVED: Anterior cervical spine hardware. ESTIMATED BLOOD LOSS: 25 mL. VOLUME REPLACED: 1.6 L crystalloid. NOTES: Exposure facilitated by head and neck ENT surgeon. Anterior cervical plate noted to be 0.5 cm displaced anteriorly. Viscera, i.e. pharynx and larynx as well as carotid sheath and associated structures retracted to a corresponding side to facilitate exposure. Inspection of the cage revealed partial incorporation of the fusion content. Using a cage grasping tool as well as a reverse angle curet, attempted displacement of the cage is performed, and the cage is found to be solidly mixed. Demineralized bone matrix putty approximately 2 mL was pasted into the of the cage to fill any defect spaces, as well as along the peripheral margins of the cage. Hemostasis was assured throughout the case, and the wound was copiously irrigated throughout the case. Decision was made not to replace the anterior cervical plate and not to perform a posterior instrumented fusion at this time. This was discussed with and understood by the patient and her family preoperatively. Wounds were closed with 2-0 and 3-0 Vicryl sutures and 3-0 Biosyn suture. Intraoperative neural monitoring was present throughout the case, and were stable throughout the case. Intraoperative imaging was available throughout the case. No complications. Patient was transported to the recovery room in stable condition having tolerated the procedure well. MD SASHA Sheikh/[id number]
[2018-01-25] MEDS: LACTATED RINGERS SOLUTION 1,000 ML IV SCH (03:00)
[2018-01-25] MEDS: ceFAZolin 2 GRAM PREMIX BAG IVPB SCH (04:43)
[2018-01-25 06:17] LABS: HEMATOCRIT 36.2 % (32.4-45.2); HEMOGLOBIN 12.2 GM/dL (10.7-15.3); MCHC 33.7 g/dl (32.0-36.0); MEAN CELL VOLUME 89.1 fl (80-96); MEAN PLT VOLUME 7.5 fl (7.5-11.1); PLATELET COUNT 207 K/MM3 (134-434); RBC 4.06 M/mm3 (3.60-5.2); RDW 14.4 % (11.6-15.6); WHITE BLOOD COUNT 10.1 K/mm3 (4.0-10.0)
[2018-01-25 06:36] LABS: ANION GAP 8 MMOL/L (8-16); BLOOD UREA NITROGEN 17 mg/dL (7-18); CALCIUM 8.5 mg/dL (8.5-10.1); CHLORIDE 104 mmol/L (98-107); CO2 27 mmol/L (21-32); GLUCOSE,RANDOM 175 mg/dL (74-106); POTASSIUM 4.5 mmol/L (3.5-5.1); SODIUM 139 mmol/L (136-145)
[2018-01-25 06:39] LABS: CREATININE 0.9 mg/dL (0.55-1.3)
[2018-01-25] MEDS ORDERED: LEVOTHYROXINE NA 100 MCG TABLET (FP) PO SCH (07:00)
--- NOTE | 2018-01-25 08:40 | PN ---
Progress Note (short form) - Note Progress Note: Anesthesia Post op/pain Pt seen and examined S:Alert and awake comfortable O: Vital Signs Temperature 97.5 F L 01/25/18 06:00 Pulse Rate 67 01/25/18 06:00 Respiratory Rate 18 01/25/18 06:00 Blood Pressure 134/66 01/25/18 06:00 O2 Sat by Pulse Oximetry (%) 99 01/24/18 19:58 CBC, BMP 01/25/18 05:30 01/25/18 05:30 A/P s/p removal of cervical hardware Doing well post op Continue BALL POINTS INSPECTOR Continue current care Ken Abbott MD
--- NOTE | 2018-01-25 12:07 | DS ---
Physical Exam: SUBJECTIVE: Patient seen and examined OBJECTIVE: Vital Signs Period Temp Pulse Resp BP Sys/Cordon Pulse Ox Last 24 Hr 97.5 F-98.6 F 66-87 11-21 121-165/54-80 99-100 PHYSICAL EXAM GENERAL: The patient is awake, alert, and fully oriented, in no acute distress. HEAD: Normal with no signs of trauma. EYES: PERRL, extraocular movements intact, sclera anicteric, conjunctiva clear. ENT: Ears normal, nares patent, oropharynx clear without exudates, moist mucous membranes. NECK: [place] J collar in place LUNGS: Breath sounds equal, clear to auscultation bilaterally HEART: Regular rate and rhythm, S1, S2 without murmur ABDOMEN: Soft, nontender, nondistended, normoactive bowel sounds EXTREMITIES: warm, well-perfused, no edema. NEUROLOGICAL: Cranial nerves II through XII grossly intact. Normal speech, gait WNL. lower extremity strength 5/5. sensation intact. uper extremities left hand squeeze is slightly stronger than right hand squeeze (chronic per patient). sensation intact in upper extremities PSYCH: Normal mood, normal affect. SKIN: Warm, dry, normal turgor LABS Laboratory Results - last 24 hr 01/25/18 01/25/18 05:30 05:30 WBC 10.1 H RBC 4.06 Hgb 12.2 Hct 36.2 MCV 89.1 MCH 30.0 MCHC 33.7 RDW 14.4 D Plt Count 207 MPV 7.5 Sodium 139 Potassium 4.5 Chloride 104 Carbon Dioxide 27 Anion Gap 8 BUN 17 Creatinine 0.9 Creat Clearance w eGFR > 60 Random Glucose 175 H Calcium 8.5 HOSPITAL COURSE: Date of Admission:01/24/18 Date of Discharge: 01/25/18 82F with history of hypothyroidism on synthroid presented to the hospital after removal of hardware from her C spine. Patient had hardware placed recently this year and the hardware failed. She tolerated the procedure well. No issues post op. Monitored in ICU post op. Opal taken out she urinated and has been tolerating diet. passing flatus. restarted on home meds. Pain well controlled. Wants to go home. Stable for discharge. Minutes to complete discharge: 35 Discharge Summary Reason For Visit: FUSION OF SPINE, CERVICAL REGION Condition: Stable - Instructions Diet, Activity, Other Instructions: You were hospitalized after your surgery. Please follow all instructions given to you by your surgeon. Continue your medications that you usually take at home if you have worsening pain fever chills chest pain shortness of breath or muscles weakness please call your doctor and/or go to the nearest emergency room. follow up with your primary care doctor as soon as possible Discharge planning: f/u [facility] [place] office Wednesday02/01/2018; call for appointment; . It was a pleasure caring for you Dr. Mirza Referrals: Tyshawn Amaral MD [Staff Physician] - 1 Week Disposition: HOME - Home Medications Comprehensive Discharge Medication List: Ambulatory Orders Glipizide/Metformin HCl [Glipizide-Metformin 5-500 mg] 2 each PO BID 10/05/17 Levothyroxine [Synthroid -] 100 mcg PO DAILY 10/05/17 Aspirin [ASA -] 81 mg PO DAILY 01/21/18 This patient is new to me today: Yes Date on this admission: 01/25/18 Emergency Visit: No Critical Care patient: Yes Total Critical Care Time (in minutes): 35 Critical Care Statement: The care of this patient involved high complexity decision making to prevent further life threatening deterioration of the patient 's condition and/or to evaluate & treat vital organ system(s) failure or risk of failure. - Discharge Referral Referred to [facility] No
--- NOTE | 2018-01-25 12:15 | PN ---
Physical Exam: SUBJECTIVE: Patient POD 1 for retightening screws from C 3- C6 discectomies. Patient has no complaints today and is walking with PT. OBJECTIVE: Vital Signs Temperature 98.2 F 01/25/18 10:00 Pulse Rate 76 01/25/18 10:00 Respiratory Rate 16 01/25/18 10:40 Blood Pressure 133/75 01/25/18 10:00 O2 Sat by Pulse Oximetry (%) 99 01/25/18 10:40 GENERAL: The patient is awake, alert, and fully oriented, in no acute distress. EYES: PERRL, extraocular movements intact NECK: patient in cervical collar LUNGS: Breath sounds equal, clear to auscultation bilaterally, HEART: Regular rate and rhythm, S1, S2 without murmur, rub or gallop. ABDOMEN: Soft, nontender, nondistended, normoactive bowel sounds, EXTREMITIES: 2+ pulses, warm, well-perfused, no edema. CBCD WBC 10.1 K/mm3 (4.0-10.0) H 01/25/18 05:30 RBC 4.06 M/mm3 (3.60-5.2) 01/25/18 05:30 Hgb 12.2 GM/dL (10.7-15.3) 01/25/18 05:30 Hct 36.2 % (32.4-45.2) 01/25/18 05:30 MCV 89.1 fl (80-96) 01/25/18 05:30 MCHC 33.7 g/dl (32.0-36.0) 01/25/18 05:30 RDW 14.4 % (11.6-15.6) D 01/25/18 05:30 Plt Count 207 K/MM3 (134-434) 01/25/18 05:30 MPV 7.5 fl (7.5-11.1) 01/25/18 05:30 CMP Sodium 139 mmol/L (136-145) 01/25/18 05:30 Potassium 4.5 mmol/L (3.5-5.1) 01/25/18 05:30 Chloride 104 mmol/L (98-107) 01/25/18 05:30 Carbon Dioxide 27 mmol/L (21-32) 01/25/18 05:30 Anion Gap 8 MMOL/L (8-16) 01/25/18 05:30 BUN 17 mg/dL (7-18) 01/25/18 05:30 Creatinine 0.9 mg/dL (0.55-1.3) 01/25/18 05:30 Creat Clearance w eGFR > 60 (>60) 01/25/18 05:30 Calcium 8.5 mg/dL (8.5-10.1) 01/25/18 05:30 Active Medications Acetaminophen (Tylenol -) 650 mg PO Q6HPO [facility] Last Admin: 01/25/18 06:05 Dose: Not Given Lactated Ringer's (Lactated Ringers Solution) 1,000 mls @ 100 mls/hr IV [facility] Last Admin: 01/25/18 03:00 Dose: 100 mls/hr Levothyroxine Sodium (Synthroid -) 100 mcg PO 0700 [facility] Last Admin: 01/25/18 06:05 Dose: 100 mcg Ondansetron HCl (Zofran Injection) 4 mg IVPUSH Q6H PRN PRN Reason: NAUSEA AND/OR VOMITING Oxycodone HCl (Roxicodone -) 5 mg PO Q4H PRN PRN Reason: PAIN LEVEL 6-10 Tramadol HCl (Ultram -) 50 mg PO Q6H PRN PRN Reason: PAIN LEVEL 4 - 6 ASSESSMENT/PLAN: 82 y/o F w/PMH of DM, hypothyroidism, had C3-C6 discectomies on 10/18/17 and is now s/p removal of hardware from this surgery POD 1. Neuro s/p cervical surgery to remove hardware - POD 1, has no complaints of pain - patient on oxycodone 5mg q4h prn - tramadol 50 mg po q6h prn -acetaminophen 650 mg po q6h prn - incentive spirometer hourly - puree diet as tolerated can be advanced - Lactated ringers @ 100 - Per Dr. Amaral can be discharged today DM: controlled Hypothyroidism: controlled Dispo: to go home today per primary team, discussed with Dr. Mirza Visit type - Emergency Visit Emergency Visit: No - New Patient This patient is new to me today: Yes Date on this admission: 01/25/18 - Critical Care Critical Care patient: Yes Total Critical Care Time (in minutes): 35 Critical Care Statement: The care of this patient involved high complexity decision making to prevent further life threatening deterioration of the patient 's condition and/or to evaluate & treat vital organ system(s) failure or risk of failure.
--- NOTE | 2018-01-25 12:36 | PN ---
Teaching Attending Note Name of Resident: Kendra Amadeo ATTENDING PHYSICIAN STATEMENT I saw and evaluated the patient. I reviewed the resident's note and discussed the case with the resident. I agree with the resident's findings and plan as documented. SUBJECTIVE: Pt seen and examined in the ICU. Pain controlled. Ambulating around unit. + flatus. Joseph out. OBJECTIVE: Vital Signs Period Temp Pulse Resp BP Sys/Cordon Pulse Ox Last 24 Hr 97.5 F-98.6 F 66-87 11-21 121-165/54-80 99-100 Intake & Output 01/22/18 01/23/18 01/24/18 01/25/18 23:59 23:59 23:59 23:59 Intake Total 3225 Output Total 1050 800 Balance 2175 -800 Weight 89.471 kg Gen: NAD in hard collar Heart: RRR Lung: decreased breath sounds at the bases Abd: soft, nontender Ext: no edema CBC, BMP 01/25/18 05:30 01/25/18 05:30 Active Medications Acetaminophen (Tylenol -) 650 mg PO Q6HPO [facility] Last Admin: 01/25/18 06:05 Dose: Not Given Lactated Ringer's (Lactated Ringers Solution) 1,000 mls @ 100 mls/hr IV ASD[facility] Last Admin: 01/25/18 03:00 Dose: 100 mls/hr Levothyroxine Sodium (Synthroid -) 100 mcg PO 0700 [facility] Last Admin: 01/25/18 06:05 Dose: 100 mcg Ondansetron HCl (Zofran Injection) 4 mg IVPUSH Q6H PRN PRN Reason: NAUSEA AND/OR VOMITING Oxycodone HCl (Roxicodone -) 5 mg PO Q4H PRN PRN Reason: PAIN LEVEL 6-10 Tramadol HCl (Ultram -) 50 mg PO Q6H PRN PRN Reason: PAIN LEVEL 4 - 6 ASSESSMENT AND PLAN: s/p Removal of Cervical Spine Hardware DM Hypothyroidism - pain control - PT - PO as tolerated - d/c planning
--- NOTE | 2018-01-25 13:46 | PN ---
Teaching Attending Note Name of Resident: aCm Mirza ATTENDING PHYSICIAN STATEMENT I saw and evaluated the patient. I reviewed the resident's note and discussed the case with the resident. I agree with the resident's findings and plan as documented. SUBJECTIVE: Patient has no complaints and wants to go home. OBJECTIVE: Vital Signs Period Temp Pulse Resp BP Sys/Cordon Pulse Ox Last 24 Hr 97.5 F-98.6 F 66-87 11-21 121-165/54-80 99-100 GENERAL: No distress. Wearing cervical collar HEART: S1S2, RRR LUNGS: Clear ABDOMEN: Obese, soft, non-tender, non-distended, normal BS EXTREMITIES: No edema Laboratory Results - last 24 hr 01/25/18 01/25/18 05:30 05:30 WBC 10.1 H RBC 4.06 Hgb 12.2 Hct 36.2 MCV 89.1 MCH 30.0 MCHC 33.7 RDW 14.4 D Plt Count 207 MPV 7.5 Sodium 139 Potassium 4.5 Chloride 104 Carbon Dioxide 27 Anion Gap 8 BUN 17 Creatinine 0.9 Creat Clearance w eGFR > 60 Random Glucose 175 H Calcium 8.5 Current Medications Generic Name Dose Route Start Last Admin Trade Name Freq PRN Reason Stop Dose Admin Acetaminophen 650 mg 01/24/18 18:00 01/25/18 06:05 Tylenol - PO Not Given Q6HPO [facility] Lactated Ringer's 1,000 mls @ 100 mls/hr 01/24/18 16:15 01/25/18 03:00 Lactated Ringers Solution IV 100 mls/hr ASDIR [facility] Administration Levothyroxine Sodium 100 mcg 01/25/18 07:00 01/25/18 06:05 Synthroid - PO 100 mcg 0700 [facility] Administration Ondansetron HCl 4 mg 01/24/18 16:09 Zofran Injection IVPUSH Q6H PRN NAUSEA AND/OR VOMITING Oxycodone HCl 5 mg 01/24/18 16:09 Roxicodone - PO Q4H PRN PAIN LEVEL 6-10 Tramadol HCl 50 mg 01/24/18 16:09 Ultram - PO Q6H PRN PAIN LEVEL 4 - 6 ASSESSMENT AND PLAN: This is an 82 year old woman with a history of hypothyroidism, type 2 DM, C- spine surgery who was admitted for removal of hardware C3-C6. 1. Failure of C-spine hardware - s/p removal of C3-C6 plate and screws 01/24 - Pain control 2. Type 2 DM - Continue metformin, glipizide 3. Hypothyroidism - Continue Synthroid 4. Obesity with BMI 37.3 5. Ok for discharge today
[2018-01-25 14:20] VITALS: BP 126/56; PULSE 70; TEMP 98
[2018-01-25 14:22] VITALS: BMI 37.2
--- NOTE | 2018-01-26 16:30 | PATH ---
Surgical Pathology Report Patient Name: ROSA MARIA CAREY [facility]. Rec. 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 Specimen(s) Received HARDWARE C3-C6 Clinical History Cervical fusion Final Diagnosis HARDWARE, C3-C6, REMOVAL: SURGICAL HARDWARE. MACROSCOPIC DIAGNOSIS. Electronically Signed Kendra Abebe M.D. Gross Description Received fresh labeled "hardware from C3-C6," is a 5.0 x 1.6 x 0.2 cm arellano metallic plate. Also received within the same container are 4 purple metallic screws averaging 1.3 cm in greatest dimension. No soft tissue is present. No sections are submitted, gross only. /01/25/2018 saudi01/25/2018
== END 2018-01-25 18:05 | disposition home or self-care (01) | DRG 517 ==
LOC: JSAMEDAYSX 09:51 → EDSTATUS 11:30 → JICU 17:29
PROVIDERS: ADMIT Orthopaedic Surgery Adult Reconstructive Orthopaedic Surgery; ATTEND Internal Medicine
PROC: 0RP104Z Removal of Internal Fixation Device from Cervical Vertebral Joint, Open Approach (ICD-10-PCS; principal; 2018-01-24 11:30)
DX: T84.226A Displacement of internal fixation device of vertebrae, initial encounter (principal); Y83.9 Surgical procedure, unspecified as the cause of abnormal reaction of the patient, or of later complication, without mention of misadventure at the time of the procedure; E11.9 Type 2 diabetes mellitus without complications; E03.9 Hypothyroidism, unspecified; E66.9 Obesity, unspecified; Z68.37 Body mass index [BMI] 37.0-37.9, adult
CPT/HCPCS: 36415; 76001-TC-FY; 80048; 82962; 85027; 86850; 86900; 86901; 88300-TC; 94760; 97116-GP; 97161-GP; J0131; J1644